=== PATIENT | male | born 1950 | race African-American/Black ===

== ENCOUNTER 2017-05-09 08:58 | Day surgery (SDC) | payer OTHER ==
[2017-05-09] VITALS (9 sets, daily range): BP systolic 99–123; BP diastolic 50–68
[~2017-05-09] VITALS: Ht 172.7 cm; Wt 72.6 kg
--- NOTE | 2017-05-09 06:59 | Pre-Procedure Note/Attestation ---
Pre-Procedure Note/Attestation Complete Prior to Procedure Planned Procedure: left Procedure Narrative: left shoulder scope, sad, mini maria elena, resection of os acromiale, rtc repair Indications for Procedure Pre-Operative Diagnosis: left shoulder rtc tear Attestation I attest that I discussed the nature of the procedure; its benefits; risks and complications; and alternatives (and the risks and benefits of such alternatives ), prior to the procedure, with the patient (or the patient's legal sales training representative). I attest that, if there was a reasonable possibility of needing a blood transfusion, the patient (or the patient's legal sales training representative) was given the [facility] standardized written summary, pursuant to the Tashi Stevinson Blood Safety Act ([place] Health and Safety Code # 1645, as amended). I attest that I re-evaluated the patient just prior to the surgery and that there has been no change in the patient's H&P, except as documented below: NONE CHINA BRICENO May 09, 2017 06:59
[~2017-05-09 08:58] MED LIST: ceFAZolin sod 1 GM in NS 55 ML IVP ONE; celeBREX 200mg Cap **SURGERY PATIENTS ONLY ORAL ONE; oxyCONTIN 20mg tab ORAL ONE
[2017-05-09] MEDS ORDERED: NKM (09:42)
--- NOTE | 2017-05-09 10:08 | Anethesia Preoperative Eval ---
Anesthesia Pre-op PMH/ROS General Date of Evaluation: May 09, 2017 Time of Evaluation: 11:26 Anesthesiologist: Matt ASA Score: ASA 2 Mallampati Score Class I : Soft palate, uvula, fauces, pillars visible Class II: Soft palate, uvula, fauces visible Class III: Soft palate, base of uvula visible Class IV: Only hard plate visible Mallampati Classification: Class I Surgeon: Lisa Diagnosis: L Shoulder Pain Surgical Procedure: L Shoulder Arthroscopy Anesthesia History: none Family History: no anesthesia problems Allergies: Coded Allergies: No Known Allergies (Unverified , 05/05/17) Medications: see eMAR Past Medical History PSxH Narrative: L knee Arthroscopy Anesthesia Pre-op Phys. Exam Physician Exam Last Vital Signs Date Time Temp Pulse Resp B/P (MAP) Pulse Ox O2 Delivery O2 Flow Rate FiO2 05/09/17 09:43 97.3 47 20 123/68 98 Room Air 97.3 Constitutional: NAD Neurologic: CN 2-12 intact Cardiovascular: RRR Respiratory: CTA Gastrointestinal: S/NT/ND Airway Exam Mallampati Score: Class I MO: full ROM: full Teeth: intact Anesthesia Pre-op A/P Risk Assessment & Plan Assessment: ASA 2 Plan: GA, BIS, Supraclavicular Block Status Change Before Surgery: No Pre-Antibiotics Dru Grams Ancef IV Given Within 1 Hr of Incision: Yes Time Given: 11:56 Mikie Gutierrez MD May 09, 2017 10:08
[2017-05-09] MEDS ORDERED: LR 1000ml 1,000 ML IVLG SCH (10:12)
[2017-05-09] MEDS ORDERED: LORazepam Inj 2mg/ml 1ml IV PRN (10:15)
[2017-05-09] MEDS ORDERED: Midazolam 2mg/2ml Inj IVP PRN (10:15)
[2017-05-09] MEDS ORDERED: fentaNYL 100 mcg/2 mL IV PRN (10:15)
[2017-05-09] MEDS ORDERED: HYDROcodone/Acetamin 7.5/325 tab ORAL PRN (10:15)
[2017-05-09] MEDS ORDERED: Norco 5mg/325mg tab ORAL PRN ×2 (10:15→18:01)
[2017-05-09] MEDS ORDERED: Ketorolac 30mg Inj IV PRN ×2 (10:15)
[2017-05-09] MEDS ORDERED: Hydromorphone 0.5mg/0.5ml inj IVP PRN (10:15)
[2017-05-09] MEDS ORDERED: oxyCODONE HCL/Acetaminophen 5/325mg ORAL PRN (10:15)
[2017-05-09] MEDS ORDERED: Atropine Inj 1mg/10ml Syr IV PRN (10:15)
[2017-05-09] MEDS ORDERED: DiphenhydrAMINE 50mg/ml Inj IVP PRN (10:15)
[2017-05-09] MEDS ORDERED: Labetalol 5mg/ml 20ml vial IV PRN (10:15)
[2017-05-09] MEDS ORDERED: celeBREX 200mg Cap **SURGERY PATIENTS ONLY ORAL ONE (10:16)
--- NOTE | 2017-05-09 10:44 | 48 Hour Post Anesthesia Eval ---
Post Anesthesia Evaluation Procedure: L Shoulder Pain Date of Evaluation: May 09, 2017 Time of Evaluation: 16:23 Blood Pressure Systolic: 123 0: 72 Pulse Rate: 58 Respiratory Rate: 18 Temperature (Fahrenheit): 98.2 O2 Sat by Pulse Oximetry: 100 Airway: patent Nausea: No Vomiting: No Pain Intensity: 1 Hydration Status: adequate Cardiopulmonary Status: Stable Mental Status/LOC: patient returned to baseline Follow-up Care/Observations: 0 Post-Anesthesia Complications: 0 Follow-up care needed: ready to discharge Mikie Gutierrez MD May 09, 2017 10:44
--- NOTE | 2017-05-09 10:44 | Immediate Post-Op Evaluation ---
Immediate Post-Op Evalulation Immediate Post-Op Evalulation Procedure: L Shoulder Pain Date of Evaluation: May 09, 2017 Time of Evaluation: 14:14 IV Fluids: 1000 LR Blood Products: 0 Estimated Blood Loss: 10 Urinary Output: 0 Blood Pressure Systolic: 109 Blood Pressure Diastolic: 50 Pulse Rate: 61 Respiratory Rate: 16 O2 Sat by Pulse Oximetry: 100 Temperature (Fahrenheit): 97.9 Pain Score (1-10): 1 Nausea: No Vomiting: No Complications 0 Patient Status: awake, reacts, patent, extubated, none Hydration Status: adequate Dru Grams Ancef IV Given Within 1 Hr of Incision: Yes Time Given: 11:56 Mikie Gutierrez MD May 09, 2017 10:44
[2017-05-09] MEDS ORDERED: Ropivacaine 5mg/ml Vial 30ml INJ ONE (11:08)
[2017-05-09] MEDS ORDERED: LR 1000ml ONE (11:30)
[2017-05-09] MEDS ORDERED: Propofol 200mg/20ml IV ONE (11:30)
[2017-05-09] MEDS ORDERED: Midazolam 2mg/2ml Inj ONE (11:30)
[2017-05-09] MEDS ORDERED: Lidocaine 1% MPF 10mg/ml 5ml ONE (11:30)
[2017-05-09] MEDS ORDERED: Dexamethasone 4mg/ml vial ONE (11:30)
[2017-05-09] MEDS ORDERED: NS Irrig 4000ml IRRIG ONE ×2 (11:30→12:45)
--- NOTE | 2017-05-09 13:53 | Brief Operative Note ---
Immediate Post Operative Note Operative Note Chief Complaint: left shoulder pain Pre-op Diagnosis: left shoulder rtc tear Procedure: left shoulder scope, delgadillo capsular release, resection of os acromiale, sad, mini maria elena, rtc debridement Post-op Diagnosis: same as pre-op Findings: consistent w/pre-op dx studies Surgeon: md alem [employer] Qa Lead: gudelia noriega Anesthesiologist: md preethi Anesthesia: general, regional Specimen: yes Complications: none Condition: stable Fluids: ns Estimated Blood Loss: minimal Drains: none Implant(s) used?: No DANIEL NORIEGA May 09, 2017 13:52
[2017-05-09] MEDS ORDERED: D5 1/2NS 1,000 ML IV SCH (18:01)
[2017-05-09] MEDS ORDERED: Tylenol #3 tab (300mg/30mg) ORAL PRN (18:01)
--- NOTE | 2017-05-10 00:15 | Operative Note - Dictated ---
DATE OF OPERATION: 05/09/2017 PREOPERATIVE DIAGNOSES: 1. Left shoulder subacromial impingement. 2. Left shoulder possible rotator cuff tear. 3. Left shoulder mesoacromion, unstable and painful. POSTOPERATIVE DIAGNOSES: 1. Left shoulder intra-articular evidence of adhesive capsulitis with hyperemic capsule. 2. Left shoulder subacromial impingement and unstable mesoacromion. 3. No evidence of rotator cuff tear. PROCEDURE: 1. Left shoulder arthroscopy and extensive intra-articular shaving. 2. Left shoulder delgadillo-capsular release involving anterior as well as anteroinferior as well as posteroinferior glenohumeral ligament and rotator interval. 3. Left shoulder subacromial bursoscopy and resection of unstable mesoacromion. 4. Examination of rotator cuff and there was no rotator cuff tear. SURGEON: Steve Gonzalez M.D. WASHING TUB OPERATOR: Shona Huynh PA-C. Recreation Therapist was present during the actual operative portion of the case and was important and essential part of the operation. During the operation, the public relations assistant held and operated the arthroscopic camera for visualization, assisted by manipulating the arm to help with visualization, and helped with essential parts of the repair process as necessary such as operating surgical instruments under surgeon supervision, suture management, and wound closures. ANESTHESIOLOGIST: Dr. Gutierrez. ANESTHESIA: General LMA anesthesia combined with interscalene block. ESTIMATED BLOOD LOSS: Less than 20 mL. COMPLICATIONS: None. SURGICAL INDICATION: The patient is a 67-year-old male who sustained the above injury to his shoulder. The patient was treated non-operative initially, but this did not alleviate the patients symptoms. Therefore, after discussing all non-surgical and surgical options, and discussing all foreseeable risk and benefits of surgery, the patient opted for surgical treatment as described above. PATIENT POSITIONING: The patient was brought to the operating room table and was placed on the operating room table. All pressure points were well padded. General anesthesia was induced and the patient was then placed in the lateral decubitus position. All pressure points were well padded again and an axillary roll was placed. The patient's shoulder was then prepped and draped in the usual sterile fashion. Time-out was performed and the appropriate preoperative antibiotic was given by the anesthesiologist. EXAMINATION OF SHOULDER UNDER ANESTHESIA: The shoulder was examined under anesthesia with all muscles well relaxed. The shoulder was forward flexed, abducted, and was placed through full range of external and internal rotation. The anterior, posterior, and inferior stability of the shoulder was checked. The exam revealed there was some tightness and decreased range of motion consistent with adhesive capsulitis, however, there was no evidence of instability. PORTAL PLACEMENT: The posterior portal was established 2 cm inferior and 1 cm medial to the edge of the posterior acromion. A 1-cm skin incision was made using an #11 blade and using the blunt obturator, the cannula was gently placed through the capsule. The mid-glenoid portal was established just lateral to the coracoid process under direct visualization. Direction of the cannula was first established using a spinal needle, and subsequently, the cannula was placed through the capsule with a blunt obturator. DIAGNOSTIC ARTHROSCOPY: The biceps tendon was probed and pulled through the joint for visualization. It appeared normal. The biceps anchor was palpated with a probe and was visualized. It appeared well attached and there was no evidence of SLAP tear. The posterior labrum and axillary recess was visualized. Axillary recess was extremely hyperemic consistent with adhesive capsulitis. The axillary recess was tight. The glenoid articular surface was visualized and it appeared normal. The articular surface of the rotator cuff was visualized and probed next. There was no evidence of articular-sided rotator cuff tear extending from the supraspinatus back to the posterior cuff. The humeral head articular surface was then visualized. There was no evidence of articular cartilage damage. Next the anterior labrum, middle glenohumeral ligament, subscapularis tendon, and the anteroinferior glenohumeral ligament were evaluated. Anteroinferior glenohumeral ligament and rotator interval were hyperemic. The subscapularis was intact. The glenohumeral ligaments were intact. At this point, the scope was moved to the mid-glenoid portal and the posterior structures including the posterior labrum, posterior capsule, and posterior cuff were visualized. The posterior capsule was very hyperemic. The subscapularis recess was devoid of any loose bodies and the anterior capsule was well attached to the humeral neck. The middle and anteroinferior glenohumeral ligament was visualized. There was evidence of hyperemia of the midline of anteroinferior glenohumeral ligament. OPERATIVE DEBRIDEMENTS AND REPAIR: Care was given to all partial-thickness tears and frayed structures in the shoulder joint. The frayed rotator cuff and labrum was debrided using a shaver initially through the anterior portal and subsequently through the posterior portal to complete the debridement. This allowed for smooth debridement of all affected structures and all loose fragments were removed. At this point, care was given to delgadillo-capsular release. The anterior as well as anteroinferior capsule was released using the [employer]throCare device down to the 4:30 position. Beyond that in the area of the axillary nerve, basket was used to mechanically release the capsule hugging the glenoid at the edge of the labrum. This provided excellent release of the glenohumeral ligament. A delgadillo-capsular release was performed anteroinferiorly as well as posteriorly and posteroinferiorly. At this point, care was given to the subacromial space. DIAGNOSTIC BURSOSCOPY: The subacromial bursa was entered through the posterior portal. The anterior portal was established under the CA ligament. Subacromial bursoscopy was initiated. There was extensive bursitis and thickened inflamed bursa in the area. The CA ligament was then debrided and removed and unstable mesoacromion was visualized. The mesoacromion was then mobilized using the elevator and using a bur and marielena, the mesoacromion was resected all the way to the posterior edge of the clavicle. Once this was completely resected, a good decompression was performed in this manner. There was no bone spur underneath the clavicle. The rotator cuff was then visualized and there was no evidence of tear of the rotator cuff. The rotator cuff was completely intact. CONDITION AT DISCHARGE FROM OPERATING ROOM: The skin was re-approximated and sterile dressing and sling were applied. All lap counts and instrument counts were correct. The patient tolerated the procedure well without complications and was taken to the recovery room in stable conditions. Steve Gonzalez M.D. DR: Regina JOB#: [id number] CC: [email or web address]
== END 2017-05-09 15:50 | disposition home or self-care (01) ==
LOC: SUR 08:58
DX: M75.42 Impingement syndrome of left shoulder (principal); M75.02 Adhesive capsulitis of left shoulder; M25.312 Other instability, left shoulder; R00.1 Bradycardia, unspecified
CPT/HCPCS: 29823; 29825; J0690; J1100; J2250; J2405; J2704; J2795; J7120; 94003; 94150